=== PATIENT | female | born 1955 | race Two or more races ===

== ENCOUNTER 2021-04-20 15:07 | Emergency (ER) | payer OTHER ==
[~2021-04-20] VITALS: Ht 162.6 cm; Wt 63.5 kg
[2021-04-20] MEDS ORDERED: LEVO-T200 MCG (15:33)
[2021-04-20] MEDS ORDERED: MOBIC7.5 MG PO (21:23)
== END 2021-04-20 21:36 | disposition home or self-care (01) ==
LOC: ER 15:07
DX: N13.2 Hydronephrosis with renal and ureteral calculous obstruction (principal); R10.12 Left upper quadrant pain